=== PATIENT | male | born 1945 | race Caucasian/White ===

== ENCOUNTER → 2021-08-02 | Outpatient (CLI) | payer OTHER ==
[2021-08-02 07:54] LABS: HEMOGLOBIN 14.2 gm/dl (14.0-17.5); RED BLOOD COUNT 5.07 M/UL (4.20-5.50); WHITE BLOOD COUNT 5.1 K/UL (4.5-11.0)
== END ==
LOC: RAD 07:10
PROVIDERS: Orthopaedic Surgery
DX: M16.12 Unilateral primary osteoarthritis, left hip (principal)
CPT/HCPCS: 36415; 77003; 85025; 85610; 85730; J0702; Q9967

== ENCOUNTER → 2021-10-25 | Outpatient (CLI) | payer OTHER ==
[~2021-10-25] MED LIST: ABILIFY15 MG PO; AMBIEN10 MG PO; CELEBREX100 MG PO; LIPITOR20 MG PO; LOW DOSE ASPIRI81 MG PO; METFORMIN HCL500 MG PO; METOPROLOL SUCC25 MG PO; PRAZOSIN PO; PROSCAR5 MG PO; SERTRALINE HCL200 MG PO
[2021-10-25 11:55] LABS: HEMOGLOBIN 13.3 gm/dl (14.0-17.5); RED BLOOD COUNT 4.88 M/UL (4.20-5.50); WHITE BLOOD COUNT 3.9 K/UL (4.5-11.0)
[2021-10-25 12:10] LABS: BUN/CREATININE RATIO 15 (0-10)
== END ==
LOC: OPSV2 10:50 → EDSTATUS 11:00
PROVIDERS: Orthopaedic Surgery
DX: Z01.818 Encounter for other preprocedural examination (principal); M16.11 Unilateral primary osteoarthritis, right hip
CPT/HCPCS: 36415; 80048; 85025; 93005

== ENCOUNTER → 2021-11-05 | Outpatient (CLI) | payer OTHER ==
[~2021-11-05] MED LIST changes: +HYDROCODON-ACE1 EAC2 PO; +VAZALORE325 MG PO
== END ==
LOC: LAB 11:42
PROVIDERS: Orthopaedic Surgery
DX: Z01.812 Encounter for preprocedural laboratory examination (principal)
CPT/HCPCS: 36415; 80048; 86850; 86900; 86901

== ENCOUNTER 2021-11-06 09:37 | Day surgery (SDC) | payer OTHER ==
[~2021-11-06] VITALS: Ht 180.3 cm; Wt 103.0 kg
[~2021-11-06 09:37] MED LIST changes: -HYDROCODON-ACE1 EAC2 PO; -VAZALORE325 MG PO
[2021-11-07 03:46] LABS: HEMOGLOBIN 13.5 gm/dl (14.0-17.5); RED BLOOD COUNT 4.81 M/UL (4.20-5.50); WHITE BLOOD COUNT 10.3 K/UL (4.5-11.0)
[2021-11-07 04:11] LABS: BUN/CREATININE RATIO 21 (0-10)
[2021-11-07] MEDS ORDERED: VAZALORE325 MG PO (12:32)
[2021-11-07] MEDS ORDERED: HYDROCODON-ACE1 EAC2 PO (12:32)
--- NOTE | 2021-11-07 12:55 | NUR ---
SPOKE WITH SAURABH MCDONALD AND VIN BRICK HANDLER REGARDING PATIENT DISCHARGE, BOTH SAID PATIENT WAS READY TO GO.
== END 2021-11-07 13:37 | disposition home or self-care (01) ==
LOC: OR 09:37 → M/S 16:05 → OR 16:30 → EDSTATUS 16:30 → OR 11-07 13:37
PROVIDERS: Orthopaedic Surgery
DX: M16.0 Bilateral primary osteoarthritis of hip (principal); G89.18 Other acute postprocedural pain; I10 Essential (primary) hypertension; E11.9 Type 2 diabetes mellitus without complications; E78.5 Hyperlipidemia, unspecified; N40.0 Benign prostatic hyperplasia without lower urinary tract symptoms; F32.A Depression, unspecified; F43.10 Post-traumatic stress disorder, unspecified; F41.9 Anxiety disorder, unspecified; Z87.891 Personal history of nicotine dependence; Z79.82 Long term (current) use of aspirin; Z79.84 Long term (current) use of oral hypoglycemic drugs; Z79.899 Other long term (current) drug therapy; Z20.822 Contact with and (suspected) exposure to COVID-19
CPT/HCPCS: 36415; 73502; 76000; 80048; 85025; 97110-GP-CQ; 97116-GP-CQ; 97161; 97166; 97530; 97535; C1776; J0690; J1100; J1885; J2001; J2250; J2370; J2704; J2795; J3010; J7050; J7120